=== PATIENT | female | born 1955 | race Caucasian/White ===

== ENCOUNTER 2019-04-13 05:44 | Emergency (ER) | payer BC ==
[2019-04-13] MEDS ORDERED: Sodium Chloride 0.9% 1000 ML 1,000 ML IV STA (06:11)
[2019-04-13] MEDS ORDERED: BENADRYL 50 MG/ML IV ONE (06:11)
[2019-04-13] MEDS ORDERED: MORPHINE SULFATE 4 MG INJ IV ONE (06:11)
[2019-04-13] MEDS ORDERED: MORPHINE SULFATE 4 MG INJ ONE (06:16)
[2019-04-13] MEDS ORDERED: Sodium Chloride 0.9% 1000 ML 1,000 ML ONE (06:16)
[2019-04-13] MEDS ORDERED: BENADRYL 50 MG/ML ONE (06:16)
--- NOTE | 2019-04-13 06:21 | ERPHSYRPT ---
- History of Present Illness Historian: patient Exam Limitations: no limitations Patient Subjective Stated Complaint: Left sided abdominal and left sided back pain Triage Nursing Assessment: Patient ambulated into ED and transferred self to bed. Patient A+O X3. Patient's skin pink, warm and dry. Patient states she was having left sided back pain constant dull ache then last night she has an instant sharp pain to left sided abdomen 10/10. Patient states she feels better standing or sitting. Patient's abdomen round and soft with BS X 4. Patient complains of nausea, but no vomiting or diarrhea. Timing/Duration: yesterday Activities at Onset: none Quality: aching Abdominal Pain Onset Location: flank Pain Radiation: LLQ Severity of Pain-Max: severe Severity of Pain-Current: severe Modifying Factors: Worsens With: breathing, defecating, eating, movement, palpation, rest, position, walking Associated Symptoms: back, nausea, No chest pain, No diaphoresis, No diarrhea, No fever/chills, No fatigue, No headache, No heartburn, No loss of appetite, No neck pain, No rash, No shortness of breath, No syncope, No vomiting, No weakness Previous symptoms: no prior history Hx Influenza Vaccination/Date Given: Yes Hx Pneumococcal Vaccination/Date Given: No Immunizations Up to Date: Yes <ESTUARDO ZAYAS - Last Filed: 04/13/19 06:55> <GEOVANNI DE OLIVEIRA - Last Filed: 04/13/19 08:09> - History of Present Illness Time Seen by Provider: 04/13/19 06:05 Physician History: Patient has had left side flank pain that began yesterday. She thought it was from pulling a suitcase, but she can not remember any specific injury. Pain worsened in the evening of 04/12/2019 that has persisted through the morning of 04/13/2019, with pain radiating to the left side of the abdomen. (ESTUARDO ZAYAS) Allergies/Adverse Reactions: erythromycin base [From Erythrocin] Allergy (Verified 04/13/19 06:05) Home Medications: Amlodipine Besylate 5 mg [Norvasc 5 mg] 5 mg PO DAILY 04/13/19 [History] Biotin/Keratin [Biotin Plus Keratin Tablet] 1 tab PO DAILY 04/13/19 [History] Calcium Carbonate/Vitamin D3 [Calcium 600-Vit D3 800 Tablet] 1 tab PO DAILY 02/22 [History] Cholecalciferol (Vitamin D3) [Vitamin D3] 2,000 unit PO DAILY 04/13/19 [History] Cyanocobalamin (Vitamin B-12) [Vitamin B-12] 5,000 mcg PO DAILY 04/13/19 [ History] Losartan Potassium [Cozaar] 50 mg PO DAILY 04/13/19 [History] Lutein 20 mg PO DAILY 04/13/19 [History] Metformin HCl Xr 500 mg [Glucophage XR 500 MG] 500 mg PO DAILY 04/13/19 [ History] Omeprazole 20 mg PO DAILY 04/13/19 [History] Piroxicam 20 mg PO DAILY 04/13/19 [History] Potassium Chloride [K-Tab ER] 10 meq PO DAILY 04/13/19 [History] - Review of Systems Constitutional: No Fever, No Chills Eyes: No Symptoms Ears, Nose, & Throat: No Symptoms Respiratory: No Cough, No Dyspnea Cardiac: No Chest Pain, No Edema, No Syncope Abdominal/Gastrointestinal: Abdominal Pain, No Nausea, No Vomiting, No Diarrhea Genitourinary Symptoms: Flank Pain, No Dysuria, No Frequency, No Hematuria, No Urinary Retention Musculoskeletal: Back Pain, No Neck Pain, No Fall, No Joint Pain Skin: No Rash Neurological: No Dizziness, No Focal Weakness, No Sensory Changes Psychological: No Symptoms Endocrine: No Symptoms, No Polyuria, No Excessive Sweating Hematologic/Lymphatic: No Easy Bleeding, No Easy Bruising All Other Systems: Reviewed and Negative <ESTUARDO ZAYAS - Last Filed: 04/13/19 06:55> - Past Medical History Neurological History: No Pertinent History ENT History: No Pertinent History Cardiac History: Hypertension Respiratory History: No Pertinent History Endocrine Medical History: No Pertinent History Musculoskeletal History: Osteoarthritis GI Medical History: No Pertinent History History: No Pertinent History Psycho-Social History: No Pertinent History Female Reproductive Disorders: No Pertinent History Other Medical History: PT. HAD C6-7 FUSION 2006, PT. IS PRE-DIABETIC, L-SPINE OA HX - Past Surgical History Past Surgical History: Yes Neuro Surgical History: Other Cardiac: No Pertinent History Respiratory: No Pertinent History Gastrointestinal: Appendectomy, Cholecystectomy Genitourinary: No Pertinent History, Other Musculoskeletal: Orthopedic Surgery Female Surgical History: Hysterectomy, Other Other Surgical History: C6-7 fusion, C4-5 fusion, C-5-6 fusion, Breast reduction , Ti carpal tunnel surgery. Cyst removed from left foot, bladder sling - Social History Smoking Status: Never smoker Exposure to second hand smoke: No Drug Use: none Patient Lives Alone: No - Female History Hx Last Menstrual Period: hysterectomy Hx Now: No <ESTUARDO ZAYAS - Last Filed: 04/13/19 06:55> - Physical Exam General Appearance: no apparent distress, alert Eye Exam: PERRL/EOMI, eyes nml inspection Ears, Nose, Throat Exam: normal ENT inspection, pharynx normal, moist mucous membranes Neck Exam: normal inspection, non-tender, supple, full range of motion Respiratory Exam: normal breath sounds, lungs clear, No respiratory distress Cardiovascular Exam: regular rate/rhythm, normal heart sounds, normal peripheral pulses, capillary refill <2 sec Gastrointestinal/Abdomen Exam: soft, No tenderness, No distention, No mass, No rebound Back Exam: normal inspection, normal range of motion, No CVA tenderness, No vertebral tenderness Extremity Exam: normal inspection, normal range of motion, pelvis stable Neurologic Exam: alert, oriented x 3, cooperative, seed tester II-XII nml as tested, normal mood/affect, nml cerebellar function, sensation nml, No motor deficits Skin Exam: normal color, warm, dry, No jaundice, No cyanosis SpO2 Interpretation: normal SpO2: 96 O2 Delivery: Room Air <ESTUARDO ZAYAS - Last Filed: 04/13/19 06:55> <ALVINO,GEOVANNI - Last Filed: 04/13/19 08:09> - Nursing Vital Signs Nursing Vital Signs: Initial Vital Signs Temperature 97.4 F 04/13/19 05:50 Pulse Rate 98 H 04/13/19 05:50 Respiratory Rate 18 04/13/19 05:50 Blood Pressure 166/101 04/13/19 05:50 O2 Sat by Pulse Oximetry 96 04/13/19 05:50 Pain Scale Pain Intensity 7 - Course Nursing assessment & vital signs reviewed: Yes EKG Interpreted by Me: RATE (71), Sinus Rhythm, NORMAL AXIS, NORMAL INTERVALS, NORMAL QRS, NORMAL ST-T <ESTUARDO ZAYAS REYNALDO - Last Filed: 04/13/19 06:55> Ordered Tests: Active Orders 24 hr Category Date Time Status EKG-ER Only STAT Care 04/13/19 06:11 Active IV Insertion STAT Care 04/13/19 06:11 Active Re-Check Vital Signs STAT Care 04/13/19 06:11 Active ABDOMEN AND PELVIS W/0 CONTRAS [CT] Stat Exams 04/13/19 06:11 Taken AMYLASE Stat Lab 04/13/19 06:05 Completed CBC W DIFF Stat Lab 04/13/19 06:05 Completed CMP Stat Lab 04/13/19 06:05 Completed LIPASE Stat Lab 04/13/19 06:05 Completed Lactic Acid Stat Lab 04/13/19 06:11 Results TROPONIN Q3H Lab 04/13/19 06:05 Completed TROPONIN Q3H Lab 04/13/19 09:15 Ordered TROPONIN Q3H Lab 04/13/19 12:15 Ordered TROPONIN Q3H Lab 04/13/19 15:15 Ordered TROPONIN Q3H Lab 04/13/19 18:15 Ordered UA W/RFX UR CULTURE Stat Lab 04/13/19 06:15 Completed Medication Summary Discontinued Medications Generic Name Dose Route Start Last Admin Trade Name Freq PRN Reason Stop Dose Admin Diphenhydramine HCl 25 mg 04/13/19 06:11 04/13/19 06:22 Benadryl 50 Mg/Ml IV 04/13/19 06:12 25 mg STAT ONE Administration Diphenhydramine HCl Confirm 04/13/19 06:16 Benadryl 50 Mg/Ml Administered 04/13/19 06:17 Dose 50 mg .ROUTE .STK-MED ONE Hydromorphone HCl 1 mg 04/13/19 06:57 04/13/19 07:14 Hydromorphone 1 Mg/Ml Ampule IV 04/13/19 06:58 1 mg STAT ONE Administration Hydromorphone HCl Confirm 04/13/19 07:11 Hydromorphone 1 Mg/Ml Ampule Administered 04/13/19 07:12 Dose 1 mg .ROUTE .STK-MED ONE Sodium Chloride 1,000 mls @ 999 mls/hr 04/13/19 06:11 04/13/19 07:39 Sodium Chloride 0.9% 1000 Ml IV 04/13/19 07:11 Infused .Q1H1M STA Infusion Sodium Chloride Confirm 04/13/19 06:16 Sodium Chloride 0.9% 1000 Ml Administered 04/13/19 06:17 Dose 1,000 mls @ ud .ROUTE .STK-MED ONE Morphine Sulfate 4 mg 04/13/19 06:11 04/13/19 06:19 Morphine Sulfate 4 Mg Inj IV 04/13/19 06:12 4 mg STAT ONE Administration Morphine Sulfate Confirm 04/13/19 06:16 Morphine Sulfate 4 Mg Inj Administered 04/13/19 06:17 Dose 4 mg .ROUTE .STK-MED ONE Orphenadrine Citrate 60 mg 04/13/19 07:07 04/13/19 07:16 Norflex 60 Mg/2 Ml IM 04/13/19 07:08 60 mg STAT ONE Administration Orphenadrine Citrate Confirm 04/13/19 07:11 Norflex 60 Mg/2 Ml Administered 04/13/19 07:12 Dose 60 mg .ROUTE .STK-MED ONE Lab/Rad Data: Laboratory Result Diagrams 04/13/19 06:05 04/13/19 06:05 Laboratory Results 04/13/19 04/13/19 04/13/19 Range/Units 06:15 06:11 06:05 WBC (4.0-10.5) K/mm3 RBC (4.1-5.4) M/mm3 Hgb (12.0-16.0) gm/dl Hct (35-47) % MCV (78-100) fl MCH (26-32) pg MCHC (32-36) g/dl RDW (11.5-14.0) % Plt Count (150-450) K/mm3 MPV (6-9.5) fl Gran % (36.0-66.0) % Eos # (Auto) (0-0.5) Absolute Lymphs (auto) (1.0-4.6) Absolute Monos (auto) (0.0-1.3) Lymphocytes % (24.0-44.0) % Monocytes % (0.0-12.0) % Eosinophils % (0.00-5.0) % Basophils % (0.0-0.4) % Absolute Granulocytes (1.4-6.9) Basophils # (0-0.4) Sodium (137-145) mmol/L Potassium (3.5-5.1) mmol/L Chloride (98-107) mmol/L Carbon Dioxide (22-30) mmol/L Anion Gap (5-15) MEQ/L BUN (7-17) mg/dL Creatinine (0.52-1.04) mg/dL Estimated GFR ML/MIN Glucose (74-106) mg/dL Lactic Acid 2.0 (0.4-2.0) Calcium (8.4-10.2) mg/dL Total Bilirubin (0.2-1.3) mg/dL AST (14-36) U/L ALT (0-35) U/L Alkaline Phosphatase (38-126) U/L Troponin I < 0.012 (0.000-0.034) ng/mL Serum Total Protein (6.3-8.2) g/dL Albumin (3.5-5.0) g/dL Amylase (30-110) U/L Lipase (23-300) U/L Urine Color STRAW (YELLOW) Urine Appearance CLEAR (CLEAR) Urine pH 7.0 (5-6) Ur Specific Hamilton 1.011 (1.005-1.025) Urine Protein NEGATIVE (Negative) Urine Ketones NEGATIVE (NEGATIVE) Urine Blood NEGATIVE (0-5) Edil/ul Urine Nitrite NEGATIVE (NEGATIVE) Urine Bilirubin NEGATIVE (NEGATIVE) Urine Urobilinogen NEGATIVE (0-1) mg/dL Ur Leukocyte Esterase NEGATIVE (NEGATIVE) Urine WBC (Auto) NONE (0-5) /HPF Urine RBC (Auto) NONE (0-2) /HPF U Epithel Cells (Auto) NONE (FEW) /HPF Urine Bacteria (Auto) RARE (NEGATIVE) /HPF Urine Mucus (Auto) SLIGHT (NEGATIVE) /HPF Urine Culture Reflexed NO (NO) Urine Glucose NEGATIVE (NEGATIVE) mg/dL 04/13/19 04/13/19 Range/Units 06:05 06:05 WBC 8.8 (4.0-10.5) K/mm3 RBC 4.82 (4.1-5.4) M/mm3 Hgb 15.1 (12.0-16.0) gm/dl Hct 43.8 (35-47) % MCV 90.9 (78-100) fl MCH 31.3 (26-32) pg MCHC 34.5 (32-36) g/dl RDW 12.2 (11.5-14.0) % Plt Count 284 (150-450) K/mm3 MPV 9.4 (6-9.5) fl Gran % 67.8 H (36.0-66.0) % Eos # (Auto) 0.08 (0-0.5) Absolute Lymphs (auto) 2.41 (1.0-4.6) Absolute Monos (auto) 0.33 (0.0-1.3) Lymphocytes % 27.4 (24.0-44.0) % Monocytes % 3.8 (0.0-12.0) % Eosinophils % 0.9 (0.00-5.0) % Basophils % 0.1 (0.0-0.4) % Absolute Granulocytes 5.96 (1.4-6.9) Basophils # 0.01 (0-0.4) Sodium 140 (137-145) mmol/L Potassium 3.5 (3.5-5.1) mmol/L Chloride 106 (98-107) mmol/L Carbon Dioxide 24 (22-30) mmol/L Anion Gap 13.3 (5-15) MEQ/L BUN 11 (7-17) mg/dL Creatinine 0.47 L (0.52-1.04) mg/dL Estimated GFR > 60.0 ML/MIN Glucose 133 H (74-106) mg/dL Lactic Acid (0.4-2.0) Calcium 9.1 (8.4-10.2) mg/dL Total Bilirubin 0.30 (0.2-1.3) mg/dL AST 25 (14-36) U/L ALT 22 (0-35) U/L Alkaline Phosphatase 91 (38-126) U/L Troponin I (0.000-0.034) ng/mL Serum Total Protein 7.2 (6.3-8.2) g/dL Albumin 4.3 (3.5-5.0) g/dL Amylase 69 (30-110) U/L Lipase 35 (23-300) U/L Urine Color (YELLOW) Urine Appearance (CLEAR) Urine pH (5-6) Ur Specific Hamilton (1.005-1.025) Urine Protein (Negative) Urine Ketones (NEGATIVE) Urine Blood (0-5) Edil/ul Urine Nitrite (NEGATIVE) Urine Bilirubin (NEGATIVE) Urine Urobilinogen (0-1) mg/dL Ur Leukocyte Esterase (NEGATIVE) Urine WBC (Auto) (0-5) /HPF Urine RBC (Auto) (0-2) /HPF U Epithel Cells (Auto) (FEW) /HPF Urine Bacteria (Auto) (NEGATIVE) /HPF Urine Mucus (Auto) (NEGATIVE) /HPF Urine Culture Reflexed (NO) Urine Glucose (NEGATIVE) mg/dL - Progress Progress: pain not gone completely <CHIPMAHINNADIYAJUVE JACOBS - Last Filed: 04/13/19 06:55> - Progress Counseled pt/family regarding: lab results, diagnosis, need for follow-up, rad results <GEOVANNI DE OLIVEIRA - Last Filed: 04/13/19 08:09> - Progress Progress Note: 04/13/19 06:54 Patient's pain is at 8/10 after first dose of morphine. 04/13/19 06:55 Discussed the case with Dr [facility]. Dr De Oliveira will determine final disposition. (ESTUARDO ZAYAS) 04/13/19 08:0 Patient is seen and examined. Patient is still complaining of some pain 8 out of 10. Even after 1 mg of Dilaudid IV. Norflex 60 mg intramuscular given. After half an hour that did relieve her muscle spasm and now her pain is 2-3 out of 10. We are waiting for final CAT scan report. (GEOVANNI DE OLIVEIRA) <CHIPNADIYA STOCKTONJUVE REYNALDO - Last Filed: 04/13/19 06:55> - Departure Departure Disposition: Home Critical Care Time: Yes Critical Care Time(excluding separately billable procedures): Critical 30-74 mins <GEOVANNI DE OLIVEIRA - Last Filed: 04/13/19 08:09> - Departure Clinical Impression: Acute left flank pain Condition: Stable Referrals: CHRISTY JOSEPH [Primary Care Provider] - Instructions: Muscle Spasms (DC) Additional Instructions: Discharge/Care Plan DONIMAN MENENDEZ was seen on 04/13/19 in the Emergency Room. The patient was counseled regarding Diagnosis,Lab results, Imaging studies, need for follow up and when to return to the Emergency Room. Prescriptions given: Discharge Note I have spoken with the patient and/or caregivers. I have explained the patient' s condition, diagnosis and treatment plan based on the information available to me at this time. I have answered the patient's and/or caregiver's questions and addressed any concerns. The patient and/or caregivers have as good understanding of the patient's diagnosis, condition and treatment plan as can be expected at this point. The vital signs have been stable. The patient's condition is stable and appropriate for discharge from the emergency department. The patient will pursue further outpatient evaluation with the primary care physician or other designated or consulting physician as outlined in the discharge instructions. The patient and/or caregivers are agreeable to this plan of care and follow-up instructions have been explained in detail. The patient and/or caregivers have received these instruction. The patient/and or caregivers are aware that any significant change in condition or worsening of symptoms should prompt an immediate return to this or the closest emergency department or call 911. Prescriptions: Orphenadrine Citrate 100 mg [Norflex 100 MG Tablet] 0 mg PO BID #20 tab
[2019-04-13 06:26] LABS: BASOPHIL % 0.1 % (0.0-0.4); Basophil (Absolute #) 0.01 (0-0.4); Eosinophil % 0.9 % (0.00-5.0); Eosinophil (Absolute #) 0.08 (0-0.5); Granulocyte Absolute (ANC) 5.96 (1.4-6.9); Granulocytes % 67.8 % (36.0-66.0); Hematocrit 43.8 % (35-47); Hemoglobin 15.1 gm/dl (12.0-16.0); Lymphocyte (Absolute #) 2.41 (1.0-4.6); Lymphocytes % 27.4 % (24.0-44.0); Mean Cell Volume 90.9 fl (78-100); Mean Corpuscular Hemoglobin 31.3 pg (26-32); Mean Corpuscular Hgb Concent. 34.5 g/dl (32-36); Mean Platelet Volume 9.4 fl (6-9.5); Monocyte (Absolute #) 0.33 (0.0-1.3); Monocytes % 3.8 % (0.0-12.0); Platelet Count 284 K/mm3 (150-450); Red Blood Count 4.82 M/mm3 (4.1-5.4); Red Cell Distribution Width 12.2 % (11.5-14.0); White Blood Count 8.8 K/mm3 (4.0-10.5)
[2019-04-13 06:35] LABS: Appearance CLEAR (CLEAR); Bacteria RARE /HPF (NEGATIVE); Bilirubin NEGATIVE (NEGATIVE); Blood NEGATIVE Ery/ul (0-5); Glucose NEGATIVE (NEGATIVE); Ketones NEGATIVE (NEGATIVE); Leukocyte Esterase NEGATIVE (NEGATIVE); Mucus SLIGHT /HPF (NEGATIVE); Nitrite NEGATIVE (NEGATIVE); Protein,Urine Dip NEGATIVE (Negative); Specific Gravity 1.011 (1.005-1.025); Urobilinogen NEGATIVE mg/dL (0-1)
[2019-04-13] MEDS ORDERED: Hydromorphone 1 mg/ml Ampule IV ONE (06:57)
[2019-04-13] MEDS ORDERED: Norflex 60 MG/2 ML IM ONE (07:07)
[2019-04-13] MEDS ORDERED: Norflex 60 MG/2 ML ONE (07:11)
[2019-04-13] MEDS ORDERED: Hydromorphone 1 mg/ml Ampule ONE (07:11)
[2019-04-13 07:22] LABS: ALBUMIN 4.3 g/dL (3.5-5.0); ALKALINE PHOSPHATASE 91 U/L (38-126); AMYLASE 69 U/L (30-110); ANION GAP 13.3 MEQ/L (5-15); BLOOD UREA NITROGEN 11 mg/dL (7-17); CHLORIDE 106 mmol/L (98-107); Calcium 9.1 mg/dL (8.4-10.2); Carbon Dioxide 24 mmol/L (22-30); Creatinine 1 0.47 mg/dL (0.52-1.04); Glucose 133 mg/dL (74-106); LIPASE 35 U/L (23-300); Potassium 3.5 mmol/L (3.5-5.1); SGOT/AST 25 U/L (14-36); SGPT/ALT 22 U/L (0-35); SODIUM 140 mmol/L (137-145); Total Protein 7.2 g/dL (6.3-8.2)
[2019-04-13 08:17] VITALS: BP 104/73; PULSE 89; O2SAT 97
--- NOTE | 2019-04-13 08:33 | XRAY ---
Indication: Left flank pain. Nausea. Multiple contiguous axial images obtained through the abdomen and pelvis without contrast using renal stone protocol. Comparison: November 25, 2016. Lung bases demonstrates tiny right base calcified granulomas. No infiltrate or effusion. Heart is not enlarged. Again small hiatal hernia. No renal calculus or evidence for obstructive uropathy in either system. Stomach is distended with food/fluid. Noncontrasted stomach and bowel loops appear nonobstructed. There remains scattered colonic diverticulosis again greatest in the descending and sigmoid. No evidence for diverticulitis or free fluid/air. Patient reports appendectomy, cholecystectomy, and hysterectomy. Remaining liver, pancreas, spleen, adrenal glands, kidneys, ureters, and bladder appear unremarkable for noncontrast exam. Minimal aortoiliac calcifications without AAA. Osseous structures intact again with mild/moderate degenerative changes throughout the thoracolumbar spine. Impression: 1. Negative renal calculus or evidence for obstructive uropathy. 2. Again incidental small hiatal hernia and colonic diverticulosis. 3. Remaining CT abdomen/pelvis without contrast exam is negative. Comment: Preliminary interpretation was made by [facility]. No critical discrepancy. CTDI 26.99
== END 2019-04-13 08:20 | disposition home or self-care (01) ==
LOC: ED 05:44
DX: R10.9 Unspecified abdominal pain (principal)
CPT/HCPCS: 36000; 36415; 74176; 80053; 81001; 82150; 83605; 83690; 84484; 85025; 93005; 96360; 96372; 96374; 96375; 99285; 99291; J1170; J1200; J2270; J2360